=== PATIENT | female | born 1990 | race Caucasian/White ===

== ENCOUNTER 2019-02-20 13:18 | Inpatient (IN) | payer OTHER ==
[~2019-02-20] VITALS: Ht 154.9 cm; Wt 70.8 kg
[2019-03-28] MEDS ORDERED: OXYTOCIN 30 UNITS/LACT RINGERS 500 ML IV ONE (13:19)
[2019-03-28] MEDS ORDERED: RINGERS SOLUTION,LACTATED 1,000 ML IV PRN (13:19)
[2019-03-28] MEDS ORDERED: OXYTOCIN 30 UNITS/LACT RINGERS 500 ML IV PRN (13:19)
[2019-03-28] MEDS ORDERED: CITRIC ACID/SODIUM CITRATE 30 ML SOLUTION UDCUP PO PRN (13:30)
[2019-03-28] MEDS ORDERED: METOCLOPRAMIDE HCL 5 MG/ML 2 ML VIAL IVP PRN (13:30)
[2019-03-28] MEDS ORDERED: METHYLERGONOVINE MALEATE 0.2 MG/ML VIAL IM PRN (13:30)
[2019-03-28] MEDS ORDERED: CARBOPROST TROMETHAMINE 250 MCG/ML AMP IM PRN (13:30)
[2019-03-28] MEDS ORDERED: LIDOCAINE/PF 1% 30 ML VIAL INJ PRN (13:30)
[2019-03-28 13:56] LABS: BASOPHILS % (AUTO) 0.6 % (0.0-2.0); EOSINOPHILS % (AUTO) 0.4 % (1.0-6.0); HEMATOCRIT 37.5 % (36-46); HEMOGLOBIN 12.6 g/dL (12.0-16.0); LYMPHOCYTES # (AUTO) 1.6 K/uL (1.0-4.8); LYMPHOCYTES % (AUTO) 16.6 % (22.0-44.0); MEAN CORPUSCULAR HEMOGLOBIN 29.2 pg (26.0-34.0); MEAN CORPUSCULAR HGB CONC 33.6 G/dL (31.0-37.0); MEAN CORPUSCULAR VOLUME 87 fL (80-100); MONOCYTES # (AUTO) 0.8 K/uL (0.1-1.0); NEUTROPHILS % (AUTO) 74.4 % (40.0-70.0); PLATELET COUNT (AUTO)-OB 261 K/uL (150-450); RED BLOOD CELL COUNT(AUTO) 4.31 MIL/uL (4.00-5.20); RED CELL DISTRIBUTION WIDTH 15.2 % (11.5-14.5)
[2019-03-28] MEDS: RINGERS SOLUTION,LACTATED 1,000 ML IV SCH ×2 (14:31→19:36)
[2019-03-28 14:57] VITALS: BP 110/61
[2019-03-28] MEDS ORDERED: RINGERS SOLUTION,LACTATED 1,000 ML IV SCH (15:12)
[2019-03-28] MEDS ORDERED: MISOPROSTOL 25 MCG TABLET VG SCH (15:15)
[2019-03-28] MEDS ORDERED: PREN-217 PO (15:18)
[2019-03-28] MEDS: MISOPROSTOL 50 MCG TABLET PO SCH (19:37)
[2019-03-29] MEDS: MISOPROSTOL 50 MCG TABLET PO SCH ×2 (00:03→04:00)
[2019-03-29] MEDS: FentaNYL CITRATE-PF 100 MCG/2 ML VIAL IVP PRN ×6 (00:23→05:18)
[2019-03-29] MEDS: RINGERS SOLUTION,LACTATED 1,000 ML IV SCH ×3 (03:09→23:17)
[2019-03-29] MEDS ORDERED: ROPIVACAINE HCL/PF 0.2% 100 ML ED ONE (05:47)
[2019-03-29] MEDS ORDERED: NALBUPHINE HCL 10 MG/ML VIAL IVP ONE ×2 (06:00)
[2019-03-29] MEDS ORDERED: BUTORPHANOL TARTRATE 2 MG/ML VIAL IM ONE (06:15)
[2019-03-29] MEDS ORDERED: LIDOCAINE/PF 2% 5 ML VIAL ONE (08:03)
[2019-03-29] MEDS ORDERED: ROPIVACAINE HCL/PF 0.2% 100 ML ED PRN (08:15)
[2019-03-29] MEDS ORDERED: DiphenhydrAMINE HCL 50 MG/ML VIAL IVP PRN ×3 (08:15→17:15)
[2019-03-29] MEDS ORDERED: ONDANSETRON HCL 4 MG/2 ML VIAL IVP PRN ×4 (08:15→17:30)
[2019-03-29] MEDS ORDERED: OXYTOCIN 30 UNITS/LACT RINGERS 500 ML IV PRN (14:24)
[2019-03-29] MEDS ORDERED: LIDOCAINE 2%/EPI 1:200,000/PF 20 ML VIAL ONE (16:51)
[2019-03-29] MEDS ORDERED: MORPHINE SULFATE/PF 1 MG/ML 10 ML AMP ONE (16:51)
[2019-03-29] MEDS ORDERED: ACETAMINOPHEN 1000 MG/ISO-OSM 100 ML IV ONE (16:52)
[2019-03-29] MEDS ORDERED: MORPHINE SULFATE 10 MG/ML SYRINGE IVP PRN ×2 (17:15)
[2019-03-29] MEDS ORDERED: FentaNYL CITRATE-PF 100 MCG/2 ML VIAL IVP PRN ×3 (17:15→17:30)
[2019-03-29] MEDS ORDERED: NALOXONE HCL 0.4 MG/ML VIAL IVP PRN (17:15)
[2019-03-29] MEDS ORDERED: NALBUPHINE HCL 10 MG/ML VIAL IVP PRN ×3 (17:15)
[2019-03-29] MEDS ORDERED: ACETAMINOPHEN 1000 MG/ISO-OSM 100 ML IV SCH (17:30)
[2019-03-29] MEDS ORDERED: OXYGEN THERAPY IH SCH ×2 (20:00)
[2019-03-29] MEDS ORDERED: LANOLIN 7 GM OINTMENT TP PRN (22:30)
[2019-03-29] MEDS ORDERED: OxyCODONE HCL/ACETAMINOPHEN 5-325 MG TABLET PO PRN (22:30)
[2019-03-29] MEDS: ACETAMINOPHEN 1000 MG/ISO-OSM 100 ML IV SCH (23:49)
[2019-03-30] MEDS: ACETAMINOPHEN 1000 MG/ISO-OSM 100 ML IV SCH (05:45)
[2019-03-30] MEDS ORDERED: DEXAMETHASONE SOD PHOS 4 MG/ML VIAL IVP ONE (06:16)
[2019-03-30] MEDS ORDERED: ONDANSETRON HCL 4 MG/2 ML VIAL IVP ONE (06:16)
[2019-03-30] MEDS ORDERED: EPHEDrine SULFATE 50 MG/ML VIAL IM ONE (06:16)
[2019-03-30 06:52] LABS: BASOPHILS % (AUTO) 0.1 % (0.0-2.0); EOSINOPHILS % (AUTO) 0 % (1.0-6.0); HEMATOCRIT 29.3 % (36-46); LYMPHOCYTES # (AUTO) 1.5 K/uL (1.0-4.8); LYMPHOCYTES % (AUTO) 8.6 % (22.0-44.0); MEAN CORPUSCULAR HEMOGLOBIN 29.8 pg (26.0-34.0); MEAN CORPUSCULAR HGB CONC 34.1 G/dL (31.0-37.0); MEAN CORPUSCULAR VOLUME 88 fL (80-100); MONOCYTES # (AUTO) 1.3 K/uL (0.1-1.0); MONOCYTES % (AUTO) 7.1 % (2.0-9.0); NEUTROPHILS # (AUTO) 14.9 K/uL (1.8-7.7); NEUTROPHILS % (AUTO) 84.2 % (40.0-70.0); PLATELET COUNT (AUTO)-OB 200 K/uL (150-450); RED BLOOD CELL COUNT(AUTO) 3.34 MIL/uL (4.00-5.20); RED CELL DISTRIBUTION WIDTH 15.2 % (11.5-14.5)
[2019-03-30] MEDS: MAGNESIUM HYDROXIDE SUSPENSION 30 ML UDCUP PO SCH ×2 (09:44→20:37)
[2019-03-30] MEDS: RINGERS SOLUTION,LACTATED 1,000 ML IV SCH (09:47)
[2019-03-30] MEDS ORDERED: METHYLERGONOVINE MALEATE 0.2 MG/ML VIAL IM ONE (18:30)
[2019-03-30] MEDS: OxyCODONE HCL/ACETAMINOPHEN 5-325 MG TABLET PO PRN (18:31)
[2019-03-30] MEDS ORDERED: METHYLERGONOVINE MALEATE 0.2 MG/ML VIAL ONE (18:38)
[2019-03-30] MEDS: IBUPROFEN 800 MG TABLET PO PRN (20:38)
[2019-03-31] MEDS: OxyCODONE HCL/ACETAMINOPHEN 5-325 MG TABLET PO PRN (02:30)
[2019-03-31] MEDS: IBUPROFEN 800 MG TABLET PO PRN ×2 (07:23→17:26)
[2019-03-31] MEDS: MAGNESIUM HYDROXIDE SUSPENSION 30 ML UDCUP PO SCH (09:00)
[2019-03-31] MEDS ORDERED: FERR-89 PO (14:06)
[2019-03-31] MEDS ORDERED: IBUP-2071 PO (14:06)
[2019-03-31] MEDS ORDERED: DOCU-275 PO (14:07)
[2019-03-31] MEDS ORDERED: HYDR-4455 PO (14:08)
== END 2019-03-31 17:50 | disposition home or self-care (01) | DRG 788 ==
LOC: PREOBSVTOIN 13:18 → 4S 03-28 13:05
PROVIDERS: ADMIT Obstetrics & Gynecology; ATTEND Obstetrics & Gynecology
PROC: 10D00Z1 Extraction of Products of Conception, Low, Open Approach (ICD-10-PCS; principal; 2019-03-29)
DX: O75.89 Other specified complications of labor and delivery (principal); O82 Encounter for cesarean delivery without indication; Z3A.40 40 weeks gestation of pregnancy; Z88.1 Allergy status to other antibiotic agents
CPT/HCPCS: 86850; 86900; 86901; 99219; J0131; J0595; J0690; J1100; J2210; J2405; J2590; J2765; J2795; J3010; J3490; J7120